=== PATIENT | male | born 1970 | race Caucasian/White ===

== ENCOUNTER 2019-04-22 17:58 | Emergency (ER) | payer BC, SELFPAY ==
[2019-04-22 18:11] VITALS: BP 172/92; PULSE 107; RESP 16; TEMP 37.2; O2SAT 98
[2019-04-22] MEDS: TETANUS,DIPHTHERIA,AC PERTUSSIS ADULT 0.5 ML (ADACEL) IM (18:37)
[2019-04-22] MEDS: SILVER SULFADIAZINE 1% CR 50 GM JAR (*BKC) 1 APPLIC TOPICAL (18:38)
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
== END 2019-04-22 18:58 | disposition home or self-care (01) ==
PROVIDERS: Emergency Provider Nurse Practitioner; PCP Family Medicine
DX: T22.211A Burn of second degree of right forearm, initial encounter (principal); T20.10XA Burn of first degree of head, face, and neck, unspecified site, initial encounter; X01.0XXA Exposure to flames in uncontrolled fire, not in building or structure, initial encounter; Z23 Encounter for immunization
CPT/HCPCS: 16020; 90471; 90715; 99202; A9270; G0463